=== PATIENT | female | born 1945 | race Hispanic/Latino ===

== ENCOUNTER 2019-02-01 06:06 | Day surgery (SDC) | payer MEDICARE ==
[2019-02-01] MEDS ORDERED: ANCEF/STERILE WATER 2 GM/20 ML IV NR (07:48)
[2019-02-01] MEDS ORDERED: LACTATED RINGERS 1,000 ML IV SCH (07:50)
--- NOTE | 2019-02-01 08:51 | Anesthesia Day of Surgery ---
Anesthesia Day of Surgery - Day of Surgery Patient Examined: Yes Patient H&P Reviewed: Yes Patient is NPO: Yes
--- NOTE | 2019-02-01 08:51 | Anesthesia Consultation ---
Anesthesia Consult and Med Hx - Airway Anesthetic Teeth Evaluation: Good ROM Head & Neck: Adequate Mental/Hyoid Distance: Adequate Mallampati Class: Class II Intubation Access Assessment: Good - Pulmonary Exam CTA: Yes - Cardiac Exam Cardiac Exam: RRR - Pre-Operative Health Status ASA Pre-Surgery Classification: ASA2 Proposed Anesthetic Plan: General (Hx of Hypothyroidism and interstitial cystitis ) - Pulmonary Hx Smoking: No Hx Sleep Apnea: No (ANGELINE PRE SCREEN LOW RISK.) - Cardiovascular System Hx Hypertension: No - Endocrine Hx Hypothyroidism: Yes - Hematic Hx Anemia: Yes (NOT RECENT) - Other Systems Hx Cancer: No
[2019-02-01] MEDS ORDERED: DILAUDID IV PRN (08:52)
[2019-02-01] MEDS ORDERED: ZOFRAN IV PRN (08:52)
[2019-02-01] MEDS ORDERED: LEVAQUIN 250MG/50ML 250 MG/50 ML BAG IV NR (09:00)
[2019-02-01] MEDS ORDERED: SUBLIMAZE ONE ×2 (11:04→11:47)
[2019-02-01] MEDS ORDERED: DIPRIVAN 10 MG/ML IV ONE (11:04)
[2019-02-01] MEDS ORDERED: OMNIPAQUE 300 MG/50 ML (CATH LAB) IV ONE ×2 (11:25)
[2019-02-01] MEDS ORDERED: ROBINUL ONE (11:42)
[2019-02-01] MEDS ORDERED: XYLOCAINE MPF 2% ONE (11:42)
[2019-02-01] MEDS ORDERED: DECADRON ONE (11:42)
[2019-02-01] MEDS ORDERED: NEO SYNEPHRINE/NS Syringe(OR USE) IV ONE (11:42)
[2019-02-01] MEDS ORDERED: ZOFRAN ONE (11:42)
--- NOTE | 2019-02-01 11:52 | Post Operative Note ---
Date of procedure: 02/01/19 Pre-op diagnosis: IC Post-op diagnosis: same Findings: glomerulations Procedure: cysto hydro rpgs Anesthesia: GETA Surgeon: SERGEY DEVLIN Estimated blood loss: none Pathology: none Condition: stable Disposition: PACU
--- NOTE | 2019-02-01 11:53 | Discharge Summary ---
Short Stay Discharge Plan Activity: other (no straining ) Weight Bearing Status: Full Weight Bearing Diet: regular, low fat Special Instructions: other (inc fluids ) Follow up with: JIMENEZ MOTA MD [Primary Care Provider] - 7 Days SERGEY DEVLIN MD [Staff Physician] - 14 Days
--- NOTE | 2019-02-01 13:54 | Operative Report ---
PREOPERATIVE DIAGNOSIS: Interstitial cystitis. POSTOPERATIVE DIAGNOSES: Interstitial cystitis, small bladder capacity with cystocele. PROCEDURE: Cystoscopy, hydrodistention x 2, bilateral retrograde. SURGEON: Dipak Slaughter MD ANESTHESIA: General. FINDINGS: This woman who had previous cystoscopy years ago and did well with the hydrodistention. She had a lesion back of the bladder, which was benign, now presents for followup treatment. DESCRIPTION OF PROCEDURE: The patient was brought to the operating room and placed on the operating table. Following induction of anesthesia, placed in lithotomy position, prepped and draped in usual sterile fashion. Cystourethroscopy showed the old scar. The bladder can only accommodate about 450 mL. There were glomerulations before we even let the fluid out. We did 2 hydrodistentions. There were some glomerulations. There were no ulcers at this time and the truth of the matter is the glomerulations were not as diffuse as they previously were. The patient tolerated the procedure well. Retrograde showed significant cystocele with good drainage, air bubbles more on the right than the left. The patient tolerated the procedure well and brought to recovery without a catheter in stable condition. JOB# [id number] MARTIN/KENZIE
[2019-02-01 15:36] VITALS: BP 143/62
--- NOTE | 2019-02-02 07:53 | Fluoroscopy Report ---
FLUOROSCOPY RETROGRADE UROGRAPHY: HISTORY: Interstitial cystitis. FINDINGS: Fluoroscopy was provided by radiology during retrograde urography by the urologist. 10 fluoroscopic images were captured. There is adequate filling of the ureters and intrarenal collecting systems with no filling defects or anatomic abnormalities identified. Please correlate with the procedural report if needed. IMPRESSION: Retrograde pyelograms within normal limits.
== END 2019-02-01 14:25 | disposition home or self-care (01) ==
LOC: OR 06:06
PROVIDERS: ATTEND Urology
DX: N30.10 Interstitial cystitis (chronic) without hematuria (principal); N81.10 Cystocele, unspecified; E03.9 Hypothyroidism, unspecified; Z79.899 Other long term (current) drug therapy; Z88.2 Allergy status to sulfonamides; Z98.49 Cataract extraction status, unspecified eye; Z90.710 Acquired absence of both cervix and uterus; Z87.440 Personal history of urinary (tract) infections; Z86.2 Personal history of diseases of the blood and blood-forming organs and certain disorders involving the immune mechanism
CPT/HCPCS: 52260; 74420; J1100; J1956; J2370; J2405; J2704; J3010; J7120; Q9967; C1758